=== PATIENT | female | born 1955 | race Caucasian/White ===

== ENCOUNTER → 2016-12-16 | Outpatient (CLI) | payer OTHER ==
[~2016-12-16] VITALS: Ht 156.8 cm; Wt 65.2 kg
[~2016-12-16] MED LIST: CHLORHEXIDINE GLUCONATE 2 % 1 PACK (2 CLOTHS) TOPICAL PRN; INSULIN HUMAN REGULAR 1,000 UNITS/10 ML VIAL SQ PRN; LACTATED RINGER'S 1000 ML IV PRN; LISI-515 PO; METOPROLOL TARTRATE 25 MG TAB PO PRN; POVIDONE IODINE 5% (ANTISEPSIS KIT) 4 APPLICATIONS EACH NARE PRN; PROPOFOL 200 MG/20 ML AMP IV ONE; SODIUM CHLORID 0.9% 500 ML IV PRN
[2016-12-16 13:34] VITALS: BP 117/71; PULSE 75; RESP 16; TEMP 98.1; O2SAT 95
--- NOTE | 2016-12-16 15:36 | GIPROC ---
[facility] [address] [facility]. [facility] [place], [address] FLEXIBLE SIGMOIDOSCOPY PROCEDURE REPORT EXAM DATE: 12/16/2016 PATIENT NAME: Keely Lozano MR #: [id number] BIRTHDATE: 1955 ORDER #: [id number] ATTENDING: Remy Michaels MD [employer] T[employer]ER: Nahomi Tobar and Pretty Burris STATUS: outpatient INDICATIONS: The patient is a 61 yr old female here for a flexible sigmoidoscopy due to rectal bleeding PROCEDURE PERFORMED: Flexible Sigmoidoscopy, diagnostic Infrared coagulation of internal hemorrhoids. MEDICATIONS: Per Anesthesia.-MAC ESTIMATED BLOOD LOSS: None CONSENT: The patient understands the risks and benefits of the procedure and understands that these risks include, but are not limited to: sedation, allergic reaction, infection, perforation and/or bleeding. Alternative means of evaluation and treatment include, among others: physical exam, x-rays, and/or surgical intervention. The patient elects to proceed with this endoscopic procedure. medical equipment was checked for proper function. Hand hygiene and appropriate measures for infection prevention was taken. After the risks, benefits and alternatives of the procedure were thoroughly explained, Informed consent was verified, confirmed and timeout was successfully executed by the treatment team. A digital rectal exam revealed no abnormalities of the rectum The Pentax EC-[id number] endoscope was introduced through the anus and advanced to the proximal transverse colon. The prep was excellent. The instrument was then slowly withdrawn as the colon was fully examined. COLON FINDINGS: There was mild diverticulosis noted in the sigmoid colon. IRC performed circumferentially for grade I internal hemorrhoids. Retroflexed views revealed internal hemorrhoid Mild segmental colitis associated with diverticulosis noted sigmoid colon. The scope was then completely withdrawn from the patient and the procedure terminated. ADVERSE EVENTS: There were no complications. IMPRESSIONS: 1. There was mild diverticulosis noted in the sigmoid colon 2. Retroflexed views revealed internal hemorrhoid 3. Revealed no abnormalities of the rectum RECOMMENDATIONS: 1. Hemorrhoidal Precautions: 1- avoid straining when defecating 2- hemorrhoidal creams or ointments as needed 3- Sitz bath daily 4- high fiber diet, and fiber supplements 5- laxatives as needed, especially milk of mag 2. Follow-up in office as needed. RECALL: NONE Remy Michaels MD eSigned: Remy Michaels MD 12/16/2016 3:36 PM cc: PATIENT NAME: Keely Lozano MR#: [id number]
[2016-12-16 15:44] VITALS: BP 111/67; PULSE 65; RESP 16; O2SAT 99
--- NOTE | 2016-12-21 08:21 | EKG ---
Date Performed: 12/16/2016 Time Performed: 14:04:02 PTAGE: 61 years EKG: Sinus rhythm NONSPECIFIC T-WAVE ABNORMALITY BORDERLINE ECG NO PREVIOUS TRACING DOCTOR: Mao Beltran Interpretating Date/Time 12/21/2016 08:18:08
== END ==
LOC: HEND 13:01
PROVIDERS: ATTEND Internal Medicine Gastroenterology
DX: K64.0 First degree hemorrhoids (principal); K57.30 Diverticulosis of large intestine without perforation or abscess without bleeding; K62.5 Hemorrhage of anus and rectum; I10 Essential (primary) hypertension
CPT/HCPCS: 00902; 45330; 46930; 93005; J7120